=== PATIENT | male | born 1995 | race Caucasian/White ===

== ENCOUNTER 2018-02-27 15:26 | Emergency (ER) | payer MEDICAID ==
[~2018-02-27] VITALS: Ht 175.3 cm; Wt 81.8 kg
[2018-02-27 15:28] VITALS: Ht 175.3 cm; Wt 81.8 kg
[2018-02-27] MEDS ORDERED: NORCO 7.5/325 T1 TA1 PO (16:57)
[2018-02-27 17:05] VITALS: BP 146/89
== END 2018-02-27 17:05 | disposition home or self-care (01) ==
LOC: D.ER 15:26
DX: S81.812A Laceration without foreign body, left lower leg, initial encounter (principal); W25.XXXA Contact with sharp glass, initial encounter; Y93.89 Activity, other specified; Y92.019 Unspecified place in single-family (private) house as the place of occurrence of the external cause; F17.200 Nicotine dependence, unspecified, uncomplicated